=== PATIENT | female | born 1960 | race Caucasian/White ===

== ENCOUNTER → 2021-08-29 | Outpatient (CLI) | payer OTHER | LOC: KOH-I 08:48 | DX: D69.6 Thrombocytopenia, unspecified (principal); K76.0 Fatty (change of) liver, not elsewhere classified | CPT/HCPCS: 76705 ==

== ENCOUNTER 2021-09-14 22:10 | Emergency (ER) | payer OTHER ==
[2021-09-14 23:32] LABS: HEMOGLOBIN 14.7 gm/dl (12.3-15.3); RED BLOOD COUNT 4.75 M/UL (4.00-5.10); WHITE BLOOD COUNT 7.4 K/UL (4.5-11.0)
[2021-09-14 23:53] LABS: BUN/CREATININE RATIO 16 (0-10)
[2021-09-15] MEDS ORDERED: ONDANSETRON ODT4 MG SL (03:24)
[2021-09-15] MEDS ORDERED: CEPHALEXIN500 M1 PO (03:24)
[2021-09-15] MEDS ORDERED: COLACE 100MG C100 MG PO (03:24)
== END 2021-09-15 03:40 | disposition home or self-care (01) ==
LOC: ER1 22:10
PROVIDERS: Physician Assistant Medical
DX: N39.0 Urinary tract infection, site not specified (principal); K59.00 Constipation, unspecified; K76.0 Fatty (change of) liver, not elsewhere classified; E11.9 Type 2 diabetes mellitus without complications; I10 Essential (primary) hypertension; R16.1 Splenomegaly, not elsewhere classified; K74.60 Unspecified cirrhosis of liver
CPT/HCPCS: 36415; 80053; 81001; 83690; 85025; 96374; 96375; 99284; J1885; J2270; J2405; Q9967

== ENCOUNTER → 2021-09-29 | Outpatient (CLI) | payer OTHER ==
[~2021-09-29] MED LIST: CEPHALEXIN500 M1 PO; COLACE 100MG C100 MG PO; ONDANSETRON ODT4 MG SL
== END ==
LOC: NM 08:10
DX: R10.11 Right upper quadrant pain (principal)
CPT/HCPCS: 78226; A9537